=== PATIENT | female | born 1965 | race Caucasian/White ===

== ENCOUNTER 2017-02-03 18:27 | Emergency (ER) | payer MEDICARE, OTHER ==
[~2017-02-03] VITALS: Ht 165.1 cm; Wt 63.5 kg
--- NOTE | ~2017-02-03 | EKG ---
PATIENT: VASU PENA UNIT #: [id number] Ventricular Rate: 88 BPM Atrial Rate: 88 BPM P-R Interval: 130 ms QRS Duration: 88 ms Q-T Interval: 358 ms QTC Calculation(Bezet): 433 ms P [place]: 71 degrees Calculated R [place]: 37 degrees Calculated T [place]: 45 degrees Diagnosis Line: Normal sinus rhythm Diagnosis Line: Normal ECG Diagnosis Line: No previous ECGs available Diagnosis Line: Confirmed by QAMAR MULLINS MD ([id number]) on 02/03/2017 Diagnosis Line: 8:06:21 PM INTERPRETING MD: SUSANNA ABEL
--- NOTE | ~2017-02-03 | CR72 ---
[facility] A Service of [facility] RADIOLOGY TEXT RESULTS PATIENT: VASU PENA LOCATION: [facility] : 61 UNIT #: [id number] AGE: [address]: Dereck Austin MD SEX: F ORDER DR: [id number] [facility] [address] [place], [place] [address] [id number] E MR#: [id number] Acc #: [id number] NAME: VASU PENA : 1965 SEX: F STUDY DATE/TIME: 02/03/2017 21:13 UNIT: [facility] ROOM: STUDY DESCRIPTION: CR Chest Single View Portable Attending Physician: Dereck Austin M.D. Ordering Physician: Dereck Austin M.D. Primary Care Physician: Abimael Rader M.D. MEDICAL IMAGING REPORT This report is preliminary unless electronic signature is present EXAM Portable chest HISTORY Chest pain, shortness of air x1 week. FINDINGS Portable view of the chest demonstrates no acute cardiopulmonary disease. Heart, mediastinum, great vessels unremarkable. Left hilar and AP window calcifications suggest old granulomatous disease. Apparent left lap-band device is seen at the GE junction. Overall no acute findings. Dictated by... Mani Freeman M.D. THIS IS AN ELECTRONICALLY VERIFIED REPORT Mani Freeman M.D. at 02/04/2017 2:34 PM NAYAN/carmelita TD: 02/04/2017 08:36 JOB #: [id number] MEDICAL IMAGING REPORT Page 1 of 1 COPY
[~2017-02-03 18:27] MED LIST: ALLEGRA180 MG PO; CALCIUM + D 6001 TA1 PO; DIAZEPAM PO; HYDROCODON-ACE1 EAC5 PO; LEXAPRO20 MG PO; MULTIVITAMIN1 UDCAP PO; NORFLEX100 MG PO; PHENERGAN25 MG PO; PREVACID PO; PROVENTIL17 GM IH; PULMICORT0.5 MG/2 M IH; REGLAN5 MG PO; SINGULAIR PO; SYMBICORT INH; VITAMIN D-32000 UNIT PO; WELLBUTRIN PO
[2017-02-03 19:01] LABS: BASOPHIL% 0.6 % (0-2.5); EOSINOPHIL# 0.1 X10e3 (0-0.7); EOSINOPHIL% 2.1 % (0.0-7.0); HEMATOCRIT 41.1 % (35.0-45.0); HEMOGLOBIN 14.3 gm/dL (12.0-16.0); LYMPHOCYTE# 1.6 X10e3 (1.0-3.5); LYMPHOCYTE% 27.4 % (17.0-45.0); MEAN CELL VOLUME 90.5 FL (83-96); MEAN CORPUSCULAR HEMOGLOBIN 31.5 PG (28-34); MEAN CORPUSCULAR HGB CONC 34.8 g/dL (30-36); MONOCYTE# 0.3 X10e3 (0-1.0); MONOCYTE% 5.7 % (3.0-12.0); NEUTROPHIL# 3.8 X10e3 (1.5-7.1); NEUTROPHIL% 64.2 % (40-75); PLATELET COUNT 249 X10e3 (140-420); RED BLOOD COUNT 4.54 X10e (3.90-5.30); RED CELL DISTRIBUTION WIDTH 13.4 % (11.0-15.5); WHITE BLOOD COUNT 5.9 X10e3 (4.0-10.5)
[2017-02-03 19:07] LABS: DIFF IND NO
[2017-02-03 19:35] LABS: ALBUMIN SERUM 4.3 g/dL (3.5-5.0); BILIRUBIN, DIRECT 0.1 mg/dL (0.0-0.2); BILIRUBIN,INDIRECT 0.5 mg/dL (0.0-0.9); BILIRUBIN,TOTAL 0.6 mg/dL (0.2-2.0); BUN/CREATININE RATIO 16.25; CALCIUM SERUM 10.2 mg/dL (8.4-10.2); CREATININE SERUM 0.8 mg/dL (0.6-1.4); GLOM FILT RATE Estimated 84.2 mL/min (>60); POTASSIUM 3.8 mmol/L (3.5-5.1); PROTEIN TOTAL SERUM 7.3 g/dL (6.0-8.3)
[2017-02-03 21:09] LABS: POC - CKMB 3.5 ng/mL (0.0-7.9); POC - TROPONIN <0.05 ng/mL (<=0.05)
[2017-02-03 21:33] LABS: POC - CKMB 2.6 ng/mL (0.0-7.9); POC - TROPONIN <0.05 ng/mL (<=0.05)
== END 2017-02-03 22:22 | disposition home or self-care (01) ==
LOC: CED 18:27
PROVIDERS: Emergency Medicine
DX: R07.89 Other chest pain (principal); I10 Essential (primary) hypertension; K21.9 Gastro-esophageal reflux disease without esophagitis; Z90.710 Acquired absence of both cervix and uterus
CPT/HCPCS: 36415; 71010; 80048; 80076; 82553; 84484; 85025; 93005; 96374; 96375; 99285; J2765; J3010